=== PATIENT | female | born 1995 | race Caucasian/White ===

== ENCOUNTER 2022-12-05 23:04 | Inpatient (IN) | payer BC ==
[2022-12-05] MEDS ORDERED: hydrALAZINE 20 MG/ML VIAL SLOW IVP PRN (23:15)
[2022-12-05 23:43] VITALS: BMI 34.5
[2022-12-06] MEDS ORDERED: fentaNYL/Ropivacaine Epidural 100 ML ONE (04:37)
[2022-12-06 04:39] LABS: Hematocrit 37.6 % (34.9-44.5); Hemoglobin 12.9 g/dL (12.0-15.5); Mean Corpuscular HGB CONC 34.3 g/dL (32.0-36.0); Mean Corpuscular Hemoglobin 29.3 pg (27.0-33.0); Mean Corpuscular Volume 85.5 fl (81.6-98.3); Mean Platelet Volume 12.1 fl (7.4-10.4); Platelet Count 178 10x3/uL (150-450); RBC Distribution Width 13.3 % (11.5-14.5); White Blood Cell (WBC) Count 10.9 10x3/uL (3.5-10.5)
[2022-12-06 05:15] LABS: Syphilis Antibody Nonreactive (Nonreactive); Syphilis Antibody Index 0.02 S/CO (<1.00 Non-Reactive)
[2022-12-06 05:16] LABS: HBSAg Index 0.23 S/CO (0-0.99); Hep B Surf Ag - L&D Non-Reactive S/CO (NonReactive)
[2022-12-06] MEDS ORDERED: Naloxone HCl 0.4 mg/ml Vial IVP PRN ×2 (05:55)
[2022-12-06] MEDS ORDERED: Acetaminophen 325 MG TAB PO PRN (05:55)
[2022-12-06] MEDS ORDERED: ePHEDrine Sulfate 50 MG/10 ML VIAL SLOW IVP PRN (05:55)
[2022-12-06] MEDS ORDERED: Moisturizing Cream (Eucerin) 113 GM JAR TOP PRN (05:55)
[2022-12-06] MEDS ORDERED: Lactated Ringer's 500 ML IV PRN (05:55)
[2022-12-06] MEDS ORDERED: Promethazine HCl 25 MG/ML VIAL IM PRN ×2 (05:55→15:18)
[2022-12-06] MEDS ORDERED: diphenhydrAMINE 50 MG/ML VIAL IVP PRN (05:55)
[2022-12-06] MEDS ORDERED: Ondansetron PF 4 MG/2 ML Vial IVP PRN ×2 (05:55→15:18)
[2022-12-06] MEDS ORDERED: fentaNYL 2 mcg/Ropivacaine 0.2% Epidural 100 ML CADD EPIDURAL SCH (06:00)
[2022-12-06] MEDS ORDERED: Communication Order-Pharmacy FS SCH (06:00)
[2022-12-06] MEDS ORDERED: Ibuprofen 800 MG TAB PO PRN (07:38)
[2022-12-06] MEDS ORDERED: HYDROcodone/Acetaminophen 5/325 mg Tablet PO PRN ×2 (07:38)
[2022-12-06] MEDS ORDERED: Lidocaine 1% (PF) 30 ML VIAL SC PRN (07:38)
[2022-12-06] MEDS ORDERED: Tranexamic Acid 1,000 MG/10 ML VIAL IVP PRN (07:39)
[2022-12-06] MEDS ORDERED: Carboprost 250 MCG/ML AMP IM PRN (07:39)
[2022-12-06] MEDS ORDERED: Acetaminophen 500 MG TAB PO PRN (07:39)
[2022-12-06] MEDS ORDERED: Diphenoxylate HCl/Atropine Tablet PO PRN ×2 (07:39)
[2022-12-06] MEDS ORDERED: Methylergonovine 0.2 MG/ML VIAL IM PRN (07:39)
[2022-12-06] MEDS ORDERED: Misoprostol 200 MCG TAB PR PRN (07:39)
[2022-12-06] MEDS ORDERED: Oxytocin 30 units/NS 500 ML 500 ML IV SCH ×5 (07:45→15:30)
[2022-12-06] MEDS ORDERED: Famotidine/PF 20 mg/2ml Vial SLOW IVP SCH (10:30)
[2022-12-06] MEDS ORDERED: Boostrix 0.5 ML (Tdap) VIAL (>/=7 yrs of age) IM ONE (15:18)
[2022-12-06] MEDS ORDERED: Preparation H Ointment 28 GM TUBE PR PRN (15:18)
[2022-12-06] MEDS ORDERED: diphenhydrAMINE 25 MG CAP PO PRN (15:18)
[2022-12-06] MEDS ORDERED: Benzocaine-Menthol 82.5 ML CAN TOP PRN (15:18)
[2022-12-06] MEDS ORDERED: Bisacodyl 10 MG SUPP PR PRN (15:18)
[2022-12-06] MEDS ORDERED: hydrALAZINE 20 MG/ML VIAL SLOW IVP PRN (15:18)
[2022-12-06] MEDS ORDERED: Milk Of Magnesia 30 ML UDCUP PO PRN (15:18)
[2022-12-06] MEDS ORDERED: Zolpidem Tartrate 5 MG TAB PO PRN (17:44)
[2022-12-06] MEDS: Ferrous Sulfate 325 MG TAB PO SCH (17:46)
[2022-12-06] MEDS: HYDROcodone/Acetaminophen 5/325 mg Tablet PO PRN ×2 (17:58→21:58)
[2022-12-06] MEDS: Docusate 100 MG CAP PO SCH (21:58)
[2022-12-06] MEDS ORDERED: Ibuprofen 800 MG TAB PO SCH (22:00)
[2022-12-07] MEDS: Ibuprofen 800 MG TAB PO PRN ×3 (00:59→17:09)
[2022-12-07 04:49] LABS: Hematocrit 30.8 % (34.9-44.5); Hemoglobin 10.1 g/dL (12.0-15.5)
[2022-12-07] MEDS ORDERED: Measles/Mumps/Rubella 10 MCG/0.5 ML VIAL SC ONE (07:09)
[2022-12-07] MEDS: Ferrous Sulfate 325 MG TAB PO SCH ×2 (07:34→17:11)
[2022-12-07] MEDS: Docusate 100 MG CAP PO SCH ×2 (07:55→21:26)
[2022-12-07] MEDS ORDERED: Prenatal Vitamin 1 TAB PO SCH (09:00)
[2022-12-07] MEDS ORDERED: Bupivacaine 0.25% HCL 30 ML VIAL ONE (09:00)
[2022-12-07] MEDS: HYDROcodone/Acetaminophen 5/325 mg Tablet PO PRN (09:23)
[2022-12-08] MEDS: Ibuprofen 800 MG TAB PO PRN (01:49)
[2022-12-08 07:50] VITALS: BP 112/61; TEMP 98.1
== END 2022-12-08 12:56 | disposition home or self-care (01) | DRG 807 ==
LOC: CSHLD/OP 23:04 → CSHLD 12-06 03:15 → CSHPP 12-06 17:30
PROVIDERS: ADMIT Obstetrics & Gynecology; ATTEND Obstetrics & Gynecology
PROC: 10E0XZZ Delivery of Products of Conception, External Approach (ICD-10-PCS; principal; 2022-12-06)
PROC: 0KQM0ZZ Repair Perineum Muscle, Open Approach (ICD-10-PCS; 2022-12-06)
DX: O70.1 Second degree perineal laceration during delivery (principal); Z37.0 Single live birth; Z3A.40 40 weeks gestation of pregnancy
CPT/HCPCS: 36415; 51702; 85014; 85018; 85027; 86780; 86850; 86900; 86901; 87340; 99285; J2405; J2550; J2590; S0020